=== PATIENT | male | born 1955 | race Caucasian/White ===

== ENCOUNTER 2021-06-05 11:55 | Emergency (ER) | payer OTHER ==
[~2021-06-05 11:55] MED LIST: ASPIRIN EC81 MG PO; BRAIN MIGHT-DH1 EACH PO; CERTAGEN1 EACH PO; PERCOCET 5-3251 EACH PO; PROTONIX 40MG T40 MG PO; VITAMIN E1000 UNIT PO
[2021-06-05] MEDS ORDERED: BACLOFEN 10MG T10 MG PO (14:12)
[2021-06-05] MEDS ORDERED: NAPROXEN500 MG PO (14:12)
== END 2021-06-05 14:54 | disposition home or self-care (01) ==
LOC: FER 11:55
DX: S20.212A Contusion of left front wall of thorax, initial encounter (principal); W01.0XXA Fall on same level from slipping, tripping and stumbling without subsequent striking against object, initial encounter
CPT/HCPCS: 71101; 72072